=== PATIENT | male | born 1995 | race Caucasian/White ===

== ENCOUNTER 2018-04-18 09:16 | Emergency (ER) | payer OTHER ==
--- NOTE | 2018-04-18 09:57 | RAD ---
Indication: LEFT knee pain following injury. Comparison: No relevant prior exams available on the [facility] P[facility] for comparison. Technique: LEFT knee: AP, tunnel, crosstable lateral, sunrise views. Report: Negative for joint effusion, fracture, or malalignment. Preserved joint spaces. Unremarkable soft tissue contours. IMPRESSION: #. Negative radiographic exam of the LEFT knee.
[2018-04-18 10:17] VITALS: BP 107/60
--- NOTE | 2018-04-18 10:18 | ED ---
Lower Extremity - HPI Summary HPI Summary: This patient is a 22 year old M presenting to [facility] with a chief complaint of left knee pain since yesterday at 1900. Pt injured the knee while rock climbing. He states he heard a pop in the knee and fell while reaching for a rock with his left leg. Patient continued rock climbing but felt a significant amount of pain in the knee yesterday evening and this morning. He states he had trouble ambulating yesterday evening and this morning. Pt states he has no Hx of injury to his left knee. Patient states he took 400 mg of Ibuprofen this morning for the pain. . - History of Current Complaint Chief Complaint: EDExtremityLower Stated Complaint: LT KNEE INJURY Time Seen by Provider: 04/18/18 09:24 Hx Obtained From: Patient Onset of Pain: Days Onset/Duration: Still Present Severity Initially: Moderate Severity Currently: Moderate Pain Intensity: 8 Pain Scale Used: 0-10 Numeric Timing: Lasting Days Location: Is Diffuse Associated Signs And Symptoms: Positive: Knee Pain Aggravating Factor(s): Ambulation, Other - Straightening leg. Able to Bear Weight: Yes - Allergies/Home Medications Allergies/Adverse Reactions: Allergies Allergy/AdvReac Type Severity Reaction Status Date / Time No Known Allergies Allergy Verified 04/18/18 09:19 Home Medications: Home Medications Methylphenidate TAB* [Ritalin TAB*] 10 mg PO DAILY 04/18/18 [History Confirmed 04/18/18] PMH/Surg Hx/FS Hx/Imm Hx Endocrine/Hematology History: Denies: Hx Diabetes Cardiovascular History: Denies: Hx Hypotension Respiratory History: Denies: Hx Chronic Obstructive Pulmonary Disease (COPD) Musculoskeletal History: Denies: Hx Orthopedic Injury - In left knee Infectious Disease History: No Infectious Disease History: Reports: Traveled Outside the [place] in Last 30 Days - [place] - Family History Known Family History: Positive: Other - Cancer in grandmother. - Social History Alcohol Use: Occasionally Substance Use Type: Reports: Marijuana Smoking Status (MU): Current Some Day Smoker Review of Systems Negative: Fever Positive: Myalgia - Left knee. All Other Systems Reviewed And Are Negative: Yes Physical Exam - Summary Physical Exam Summary: Appearance: Well appearing, no pain distress. Pt holds left leg flexed. Skin: warm, dry, reflects adequate perfusion Head/face: normal Eyes: EOMI, JO-ANN ENT: mucous membranes moist Neck: supple, non-tender Respiratory: CTA, breath sounds present Cardiovascular: RRR, pulses symmetrical Abdomen: non-tender, soft Bowel Sounds: present Musculoskeletal: Soreness with medial stress in the lateral joint line in the Left knee. No significant effusion. Neuro: normal, sensory motor intact, A&Ox3 Triage Information Reviewed: Yes Vital Signs On Initial Exam: Initial Vitals Temp Pulse Resp BP Pulse Ox 97.9 F 84 16 116/68 97 04/18/18 09:20 04/18/18 09:20 04/18/18 09:20 04/18/18 09:20 04/18/18 09:20 Vital Signs Reviewed: Yes Diagnostics - Vital Signs Vital Signs Temp Pulse Resp BP Pulse Ox 04/18/18 09:20 97.9 F 84 16 116/68 97 - Laboratory Lab Statement: Any lab studies that have been ordered have been reviewed, and results considered in the medical decision making process. - Radiology Knee XR Xray Interpretation: No Acute Changes Radiology Interpretation Completed By: Radiologist - Negative radiographic exam of the left knee. ED Provider has reviewed this report. Lower Extremity Course/Dx - Course Course Of Treatment: Negative x-ray and no effusion on exam. Tenderness in the lateral joint line with concerns for LCL sprain. Treated with Heber wrap, knee immobilizer and crutches. Patient will range his knee every hour and follow-up with [facility]. Orthopedics as needed. - Diagnoses Differential Diagnosis/HQI/PQRI: Positive: Fracture (Closed), Sprain, Strain Provider Diagnoses: Sprain of LCL (lateral collateral ligament) of knee Discharge - Sign-Out/Discharge Documenting (check all that apply): Patient Departure - Discharge - Discharge Plan Condition: Improved Disposition: HOME Prescriptions: Naproxen [Naproxen 500 mg tab] 500 mg PO BID PRN #12 tablet.dr PEREZ Reason: Pain Patient Education Materials: Knee Sprain (ED), Knee Immobilizer (ED) Referrals: [facility] [Provider Group] Jania Hernandez MD [Medical Doctor] - Additional Instructions: Ice, elevate at rest, range of motion exercises every hour. Follow-up with [facility] in 2-3 days. If still having a lot of pain have them refer you to orthopedic care. - Billing Disposition and Condition Condition: IMPROVED Disposition: Home - Attestation Statements Document Initiated by Scribe: Yes Documenting Scribe: Rubens Brock Provider For Whom Scribe is Documenting (Include Credential): Chema Santos MD Scribe Attestation: I, Rubens Brock, scribed for Chema Santos MD on 04/18/18 at 1125. Scribe Documentation Reviewed: Yes Provider Attestation: The documentation as recorded by the scribe, Rubens Brock accurately reflects the service I personally performed and the decisions made by me, Chema Santos MD
== END 2018-04-18 10:15 | disposition home or self-care (01) ==
LOC: ED 09:16
DX: S83.92XA Sprain of unspecified site of left knee, initial encounter (principal); Y93.31 Activity, mountain climbing, rock climbing and wall climbing; F17.200 Nicotine dependence, unspecified, uncomplicated
CPT/HCPCS: 99282

== ENCOUNTER 2021-04-04 20:13 | Inpatient (IN) ==
[2021-04-04 21:00] LABS: Urine Appearance Clear; Urine Bilirubin Negative (Negative); Urine Blood Negative (Negative); Urine Color Yellow; Urine Glucose Negative (Negative); Urine Ketones Negative (Negative); Urine Nitrite Negative (Negative); Urine Protein Negative (Negative); Urine Specific Gravity 1.008 (1.002-1.030); Urine Urobilinogen Negative (Negative)
[2021-04-04 21:24] LABS: Urine Benzodiazepine Screen None Detected (None Detect); Urine Cannabinoids Screen None Detected (None Detect); Urine Opiates Screen None Detected (None Detect)
[2021-04-04 21:34] LABS: ABS Lymphocytes 0.7 10^3/ul (1.0-4.8); ABS Monocytes 0.2 10^3/ul (0-0.8); ABS Neutrophils 4.4 10^3/ul (1.5-7.7); Eosinophil % 0.1 %; Hematocrit 41 % (42-52); Hemoglobin 14.1 g/dL (14.0-18.0); Lymphocyte % 12.9 %; Mean Corpuscular HGB Conc 34 g/dL (31-36); Mean Corpuscular Hemoglobin 32 pg (27-31); Mean Corpuscular Volume 92 fL (80-94); Mean Platelet Volume 9.7 fL (7.4-10.4); Platelet Count 197 10^3/uL (150-450); Red Blood Count 4.47 10^6 /uL (4.18-5.48); Red Cell Distribution Width 15 % (10-15); White Blood Count 5.3 10^3/uL (3.5-10.8)
[2021-04-04 21:54] LABS: ALT 16 U/L (7-52); AST 21 U/L (13-39); Acetaminophen < 15 mcg/mL; Albumin 4.8 g/dL (3.2-5.2); Albumin/Globulin Ratio 1.6 (1-3); Alcohol, S 67 mg/dL (<13); Alkaline Phosphatase 77 U/L (35-149); Anion Gap 10 mmol/L (2-11); Blood Urea Nitrogen 12 mg/dL (6-24); CO2 Carbon Dioxide 23 mmol/L (22-32); Calcium 9.7 mg/dL (8.6-10.3); Chloride 104 mmol/L (101-111); EGFR African American 93.2 (>60); EGFR Non-African American 77.1 (>60); Glucose 91 mg/dL (70-100); Potassium 3.9 mmol/L (3.5-5.0); Salicylate < 2.50 mg/dL (<30); Sodium 137 mmol/L (135-145); Total Protein 7.8 g/dL (6.4-8.9)
[2021-04-05 03:42] LABS: Rapid COVID-19 Molecular Undetected (Undetected)
[2021-04-05] MEDS ORDERED: Al Hydrox/Mg Hydrox/Simet LIQ 30 ML UDC PO PRN (04:36)
[2021-04-05] MEDS: Lisdexamfetamine 10 mg CAP(NF) PO SCH (12:07)
[2021-04-05] MEDS: Vitamin THERAPEUTIC TAB PO SCH (12:07)
[2021-04-05 13:04] LABS: Hepatitis B Surface Antigen Nonreactive (Nonreactive)
[2021-04-05 13:09] LABS: Hepatitis A Ab IgM Negative (Negative)
[2021-04-05 13:10] LABS: Hepatitis B Core IgM Nonreactive (Nonreactive)
[2021-04-05 13:22] LABS: Hepatitis C Antibody Negative (Negative)
[2021-04-05 13:32] LABS: HIV 4th Generation Nonreactive (Nonreactive)
[2021-04-06 08:24] VITALS: BP 116/69
[2021-04-06] MEDS: Lisdexamfetamine 10 mg CAP(NF) PO SCH (09:15)
[2021-04-06] MEDS: Vitamin THERAPEUTIC TAB PO SCH (09:16)
[2021-04-06 14:50] LABS: Chlamydia trachomatis NAA Negative (Negative); Neisseria gonorrhoeae (GC) NAA Negative (Negative)
[2021-04-07 16:09] LABS: RPR Nonreactive (Nonreactive)
[2021-04-10 14:31] LABS: T.Pallidum TP-PA Negative (Negative)
== END 2021-04-06 11:25 | disposition home or self-care (01) | DRG 882 ==
LOC: ED 20:13 → BSU 04-05 02:46
PROVIDERS: ADMIT Psychiatry & Neurology Psychiatry; ATTEND Psychiatry & Neurology Psychiatry